=== PATIENT | male | born 1975 | race Caucasian/White ===

== ENCOUNTER 2022-06-15 22:59 | Emergency (ER) | payer BC, OTHER, SELFPAY ==
[2022-06-15] MEDS ORDERED: Ibuprofen 200 MG TAB ONE (23:50)
[2022-06-15] MEDS ORDERED: Acetaminophen 500 MG TAB ONE (23:50)
[2022-06-16] MEDS ORDERED: Amlodipine 5 MG TAB ONE (00:35)
== END 2022-06-16 01:20 ==
LOC: CSHERS 22:59
DX: I10 Essential (primary) hypertension (principal)
CPT/HCPCS: 36415; 71045; 84484; 93005

== ENCOUNTER 2024-04-22 08:51 | Outpatient (CLI) | payer OTHER | END 2024-04-22 08:52 | disposition home or self-care (01) | LOC: CSHMRI 08:51 | DX: M50.30 Other cervical disc degeneration, unspecified cervical region (principal); M47.812 Spondylosis without myelopathy or radiculopathy, cervical region; M48.02 Spinal stenosis, cervical region; M48.03 Spinal stenosis, cervicothoracic region | CPT/HCPCS: 72141 ==